=== PATIENT | female | born 1945 | race Hispanic/Latino ===

== ENCOUNTER 2016-07-27 15:38 | Inpatient (IN) | payer MEDICARE ==
[2016-07-27 15:48] VITALS: BMI 34.7
[2016-07-27] MEDS ORDERED: Sodium Chloride 0.9% 1,000 ML IV STA (16:10)
--- NOTE | 2016-07-27 16:14 | ED PDOC ---
"Arrival/HPI <Kaila Fleming - Last Filed: 07/27/16 21:47> - General Historian: Patient <Sajan Carrillo - Last Filed: 07/30/16 16:37> - General Chief Complaint: GI Problem Time Seen by Provider: 07/27/16 16:03 - History of Present Illness Narrative History of Present Illness (Text): 07/27/16 16:11 70 y/o female, pmh including renal stone/htn/hyperlipidemia/hypothyroidism, allergic to macrolide, c/o lt. flank/lt. sided abdominal pain for the 24 hours with no fall or trauma. Aching pain, feels bloated, concerning this is renal stone, feels nausea but no vomiting, no fever or chills, no coughing, no night sweat, no dizziness, no other medical or psychological complaints. (Sajan Carrillo) Past Medical History - Provider Review Nursing Documentation Reviewed: Yes - Infectious Disease Hx of Infectious Diseases: None - Cardiac Hx Hypertension: Yes Hx Pacemaker: No - Pulmonary Hx Respiratory Disorders: No - Neurological Hx Neurological Disorder: No Hx Paralysis: No - HEENT Hx HEENT Disorder: Yes (reading glasses) - Renal Hx Kidney Stones: Yes - Endocrine/Metabolic Hx Hyperthyroidism: Yes - Hematological/Oncological Hx Blood Transfusions: No Hx Blood Transfusion Reaction: No - Integumentary Hx Dermatological Disorder: No - Musculoskeletal/Rheumatological Hx Musculoskeletal Disorders: Yes Hx Arthritis: Yes - Gastrointestinal Hx Gastroesophageal Reflux: Yes - Psychiatric Hx Emotional Abuse: No Hx Physical Abuse: No Hx Substance Use: No - Surgical History Hx Appendectomy: Yes (2001) Hx Hysterectomy: Yes Other/Comment: 4 gu procedures for kidney stones, right trigger finger sx - Anesthesia Hx Anesthesia: Yes Hx Anesthesia Reactions: No - Suicidal Assessment Feels Threatened In Home Enviroment: No <Sajan Carrillo - Last Filed: 07/30/16 16:37> Family/Social History - Physician Review Nursing Documentation Reviewed: Yes Family/Social History: Unknown Family HX Smoking Status: Never Smoked Hx Alcohol Use: No Hx Substance Use: No <Sajan Carrillo - Last Filed: 07/30/16 16:37> Allergies/Home Meds <Kaila Fleming - Last Filed: 07/27/16 21:47> <Sajan Carrillo - Last Filed: 07/30/16 16:37> Allergies/Adverse Reactions: Allergies erythromycin base [From Erythrocin] Allergy (Verified 07/27/16 15:48) ITCHING Home Medications: Home Meds Medication Instructions Recorded Confirmed Aspirin [Aspir 81] 81 mg PO DAILY 07/07/13 07/27/16 Atorvastatin [Lipitor] 10 mg PO DIN 07/07/13 07/27/16 Bisoprolol Fumarate/Hydrochl [Ziac 1 tab PO QAM 07/07/13 07/27/16 10 mg-6.25 mg] Levothyroxine Sodium [Synthroid] 0.088 mg PO QAM 07/07/13 07/27/16 Rabeprazole Sodium [Aciphex] 20 mg PO QPM 07/07/13 07/27/16 Review of Systems - Review of Systems Constitutional: absent: Fatigue, Fevers Eyes: absent: Vision Changes ENT: absent: Hearing Changes Respiratory: absent: SOB, Cough Cardiovascular: absent: Chest Pain Gastrointestinal: Abdominal Pain, Constipation, Nausea, Vomiting Musculoskeletal: absent: Arthralgias, Back Pain, Neck Pain, Joint Swelling, Myalgias Neurological: absent: Headache, Dizziness, Focal Weakness Psychiatric: absent: Anxiety, Depression, Suicidal Ideation <Sajan Carrillo Q - Last Filed: 07/30/16 16:37> Physical Exam Vital Signs Reviewed: Yes Temperature: Afebrile Blood Pressure: Normal Pulse: Regular Respiratory Rate: Normal Appearance: Positive for: Well-Appearing, Non-Toxic, Comfortable Pain Distress: Mild Mental Status: Positive for: Alert and Oriented X 3 - Systems Exam Head: Present: Atraumatic, Normocephalic Pupils: Present: PERRL Extroacular Muscles: Present: EOMI Conjunctiva: Present: Normal Mouth: Present: Moist Mucous Membranes Neck: Present: Normal Range of Motion Respiratory/Chest: Present: Clear to Auscultation, Good Air Exchange. No: Respiratory Distress, Accessory Muscle Use Cardiovascular: Present: Regular Rate and Rhythm, Normal S1, S2. No: Murmurs Abdomen: Present: Distention, Normal Bowel Sounds. No: Tenderness, Peritoneal Signs, Rebound, Guarding Back: Present: Normal Inspection, CVA Tenderness (mild left). No: Midline Tenderness, Paraspinal Tenderness, Pain with Leg Raise, Decubitus Ulcer Upper Extremity: Present: Normal Inspection. No: Cyanosis, Edema Lower Extremity: Present: Normal Inspection. No: Edema Neurological: Present: GCS=15, Speech Normal, Motor Func Grossly Intact, Gait Normal, Memory Normal Skin: Present: Warm, Dry, Normal Color. No: Rashes Lymphatic: No: Cervical Adenopathy Psychiatric: Present: Alert, Oriented x 3, Normal Insight, Normal Concentration <Sajan Carrillo - Last Filed: 07/30/16 16:37> Vital Signs Temp Pulse Resp BP Pulse Ox 07/27/16 22:27 82 18 110/48 L 100 07/27/16 21:00 78 18 144/53 L 98 07/27/16 17:39 82 18 129/78 98 07/27/16 15:52 98.6 F 79 18 126/84 96 Medical Decision Making - EKG Interpretation Interpreted by ED Physician: Yes Type: 12 lead EKG <Kaila Fleming - Last Filed: 07/27/16 21:47> - Lab Interpretations I have reviewed the lab results: Yes Interpretation: Abnormal lab values (wbc 15.1, bun 22, +UTI) - RAD Interpretation [place] Polisher: Radiologist <Sajan Carrillo - Last Filed: 07/30/16 16:37> ED Course and Treatment: 07/27/16 21:48 Patient with no chest pain or sob. Afebrile. Leukocytosis noted with labs, although ct suggestive of kidney stone. On re-exam, pain returned, mild left sided abdominal pain noted but no pulsatile masses, no rebound or guarding. Patient noted to have possible UTI, iv antibiotics initiated. No hypotension or chest pain or sob. (Kaila Fleming) 07/27/16 16:15 Differential: Pylonephritis vs. obstructive renal stone vs. pancreatitis vs. small bowel obstruction vs. constipation vs. SD vs. pneumonia -labs/ua/lipase -CT abdomen and pelvis -EKG -Chest x-ray -IVF/zofran/will give morphine 4mg IV prn -Observe and reassess 07/27/16 20:24 -EKG: NSR @ 71, no ST elevation or depression, new T wave inversions noted on the lead III/V2-V4, compared with previous ekg (troponin ordered). -Chest x-ray show possible rt. sided opacity, pt. asymptomatic which I ordered CT Chest to follow. -CT Chest show no pneumonia -CT abdomen and pelvis show moderate hydronephrosis hydroureter of the left collecting system secondary to a partially obstructing stone approx. 4mm -Labs show wbc 15.1 with bun 22 -UA show +UTI -IV rocephin ordered. 07/27/16 20:32 -I discussed the case with Dr. Amber Maria, discussed about the labs and radiology results, Dr. Gómez for consult, she will admit the patient. -I discussed the case with the medical specialist Dr. Ophelia Portillo, he will come to admit the patient. -I discussed the case with Dr. Erika Gómez, discussed about the labs and radiology results, request NPO after midnight for possible procedure tomorrow -Strainer and Flomax ordered. -Pt. has pain again, additional morphine and zofran ordered with IVF. (Sajan Carrillo) - Lab Interpretations Microbiology Results: Microbiology Results 07/27/16 17:40 Blood-Venous Blood Culture - Preliminary NO GROWTH AFTER 48 HOURS 07/27/16 17:20 Blood-Venous Blood Culture - Preliminary NO GROWTH AFTER 48 HOURS 07/27/16 16:35 Urine,Clean Catch Urine Culture - Final Escherichia Coli Lab Results: 07/27/16 16:25 07/27/16 16:25 Lab Results 07/27/16 16:25: Lactate Dehydrogenase 555, Total Creatine Kinase 63, Troponin I < 0.01 07/27/16 16:25: Sodium 137, Potassium 4.2, Chloride 103, Carbon Dioxide 26, Anion Gap 12, BUN 22 H, Creatinine 1.0, Est GFR ( Amer) > 60, Est GFR ( Non-Af Amer) 55, Random Glucose 130 H, Calcium 8.7, Total Bilirubin 0.7, AST 36 , ALT 27, Alkaline Phosphatase 53, Total Protein 7.1, Albumin 3.8, Globulin 3.2 , Albumin/Globulin Ratio 1.2, Lipase 43 07/27/16 16:25: Urine Color Yellow, Urine Appearance Sl cloudy, Urine pH 6.0, Ur Specific [place] 1.025, Urine Protein Trace H, Urine Glucose (UA) Negative, Urine Ketones Trace H, Urine Blood Moderate H, Urine Nitrate Negative, Urine Bilirubin Negative, Urine Urobilinogen 0.2, Ur Leukocyte Esterase Trace H, Urine RBC 2 - 5, Urine WBC 5 - 10, Ur Epithelial Cells 4 - 5, Urine Bacteria Mod 07/27/16 16:25: WBC 15.1 H D, RBC 4.17, Hgb 12.7, Hct 37.7, MCV 90.4, MCH 30.5, MCHC 33.7, RDW 13.1, Plt Count 238, MPV 9.4, Neutrophils % (Manual) 87 H, Band Neutrophils % 6 H, Lymphocytes % (Manual) 4 L, Monocytes % (Manual) 2, Basophils % (Manual) 1, Platelet Evaluation Normal - RAD Interpretation Radiology Orders: 07/27/16 16:10 CHEST,ABD,PEL W/IV CONT ONLY [CT] Stat CHEST PORTABLE [RAD] Stat Chest x-ray: COMPARISON: 09/03/2014 FINDINGS: LUNGS: Opacity at medial right lung base. Possible early pneumonia. Follow-up advised. PLEURA: No significant pleural effusion identified, no pneumothorax apparent. CARDIOVASCULAR: Normal. OSSEOUS STRUCTURES: No significant abnormalities. VISUALIZED UPPER ABDOMEN: Normal. OTHER FINDINGS: None. IMPRESSION: No active disease. CT Chest with contrast show: CT Abdomen and pelvis show: ABDOMEN: Liver: There is a diffuse mild decrease in hepatic parenchymal density, consistent with mild fatty infiltration. There are no focal liver lesions present. Gallbladder and bile ducts: Unremarkable. No calcified stones. No ductal dilation. No significant wall thickening. Pancreas: The pancreas appears normal. No ductal dilation. Spleen: The spleen is normal. Adrenals: Unremarkable. No mass. Kidneys and ureters: There is moderate hydronephrosis hydroureter of the left collecting system secondary to a partially obstructing stone located in the left mid proximal ureter measuring approximately 4 mm. There is marked left perinephric stranding and minimal fluid seen. Calcific focus RINA HOLT | Preliminary Radiology Report Page 2 of 3 is present the left kidney, likely a nonobstructing stone. There is diffuse bilateral renal cortical thinning, consistent with chronic renal insufficiency. Stomach and bowel: Mild diverticulosis is present in the sigmoid and descending colon. The stomach is normal. The duodenum is unremarkable. No obstruction. No mucosal thickening. Appendix: There has been an appendectomy. PELVIS: Bladder: The bladder is decompressed but otherwise normal. Reproductive: Unremarkable as visualized. Subperitoneal space: There is mild nonspecific stranding associated with the perirectal fat of uncertain etiology and clinical significance. No adjacent soft tissue gas or abscess. ABDOMEN and PELVIS: Intraperitoneal space: Unremarkable. No free air. No significant fluid collection. Bones/joints: The spine demonstrates moderate degenerative changes at multiple levels. There is mild grade 1 anterolisthesis L4 on 5. No acute fracture. No dislocation. Soft tissues: Previous abdominal wall surgery for hernia repair, and placement of mesh in satisfactory position right lower quadrant. Vasculature: The aorta demonstrates severe atherosclerotic calcification and ectasia. No abdominal aortic aneurysm. Lymph nodes: Unremarkable. No enlarged lymph nodes. IMPRESSION: There is moderate hydronephrosis hydroureter of the left collecting system secondary to a partially obstructing stone located in the left mid proximal ureter, 4 mm. Left nephrolithiasis is also seen. Other incidental findings also noted, which are detailed above. EXAM: CT Chest With Intravenous Contrast CLINICAL HISTORY: 70 years old, female; Pain; Abdominal pain; Acute; Chest pain; Type not specified; Additional info: Lt. Sided abdominal/flank pain TECHNIQUE: Axial computed tomography images of the chest with intravenous contrast. This CT exam was performed using one or more of the following dose reduction techniques: automated exposure control, adjustment of the mA and/or kV according to patient size, and/or use of iterative reconstruction technique. CONTRAST: 100 mL of OMNI 350 administered intravenously. RINA HOLT | Preliminary Radiology Report DIGITAL ACCOUNT DIRECTOR (QA) DISCREPANCY? If there is a discrepancy between the preliminary and final interpretation, please notify [facility] via [email or web address]. If you do not have access to our QA portal, call our QA team at [phone] CONFIDENTIALITY STATEMENT This report is intended only for the use of the referring physician, and only in accordance with law, If you received this in error, call [phone] Page 3 of 3 COMPARISON: OT - DENSITOMETRY HIP SPINE 01/25/2016 11:10:00 AM FINDINGS: Lungs: Lungs overall clear. No focal lung consolidation, pulmonary infiltrates, no cavitary changes are seen. Pleural space: Unremarkable. No pneumothorax. No significant effusion. Heart: Unremarkable. No cardiomegaly. No significant pericardial effusion. Thyroid: The visualized thyroid and the thoracic inlet appear normal. Bones/joints: The spine demonstrates moderate degenerative changes at multiple levels. No acute fracture. No dislocation. Soft tissues: Unremarkable. Vasculature: No filling defects are seen in the pulmonary arteries or in its visualized tributaries. The aorta and the great vessels are normal. Negative for dissection. Lymph nodes: Unremarkable. No enlarged lymph nodes. IMPRESSION: No PE or dissection, no acute process is seen. Thank you for allowing us to participate in the care of your patient. Dictated and Authenticated by: Stefan Pierre MD 07/27/2016 7:50 PM Eastern Time ([place] & [place]) (Sajan Carrillo) - EKG Interpretation EKG Interpretation (Text): 07/27/16 21:49 EKG at 16:25 normal sinus rhythm rate of 71 with t wave flattening (Kaila Fleming) - Medication Orders Current Medication Orders: Discontinued Medications Acetaminophen (Tylenol 325mg Tab) 650 mg PO Q6H PRN PRN Reason: Fever >100.4 F Aspirin (Ecotrin) 81 mg PO DAILY AMAN Atorvastatin Calcium (Lipitor) 10 mg PO DIN AMAN Last Admin: 07/27/16 22:35 Dose: 10 mg Ceftriaxone Sodium (Rocephin) Confirm Administered Dose 1 gm .ROUTE .STK-MED ONE Stop: 07/28/16 08:17 Last Admin: 07/28/16 08:16 Dose: 1 gm Comments: ORM Administered Route: IVPB Fentanyl (Fentanyl) Confirm Administered Dose 100 mcg .ROUTE .STK-MED ONE Stop: 07/28/16 07:59 Sodium Chloride (Sodium Chloride 0.9%) 1,000 mls @ 125 mls/hr IV .Q8H STA Stop: 07/28/16 00:09 Last Admin: 07/27/16 16:43 Dose: 125 mls/hr Ceftriaxone Sodium (Rocephin 1 Gram Ivpb) 1 gm in 100 mls @ 200 mls/hr IVPB STAT STA PRN Reason: Protocol Stop: 07/27/16 18:39 Last Admin: 07/27/16 18:19 Dose: 200 mls/hr Sodium Chloride (Sodium Chloride 0.9%) 1,000 mls @ 250 mls/hr IV .Q4H [facility] Last Admin: 07/28/16 05:57 Dose: 250 mls/hr Ceftriaxone Sodium (Rocephin 1 Gram Ivpb) 1 gm in 100 mls @ 100 mls/hr IVPB DAILY [facility] PRN Reason: Protocol Lactated Ringer's (Lactated Ringer's) 1,000 mls @ 75 mls/hr IV .[id number] [facility] Stop: 07/28/16 10:38 Iohexol (Omnipaque 350 100 Ml) Confirm Administered Dose 350 mg .ROUTE .STK-MED ONE Stop: 07/27/16 18:40 Iohexol (Omnipaque 240 (50 Ml)) Confirm Administered Dose 50 ml .ROUTE .STK-MED ONE Stop: 07/28/16 08:17 Last Admin: 07/28/16 08:19 Dose: 20 ml Ketorolac Tromethamine (Toradol) 30 mg IVP ONCE ONE Stop: 07/27/16 20:48 Last Admin: 07/27/16 20:55 Dose: 30 mg Ketorolac Tromethamine (Toradol) 30 mg IVP Q6 PRN PRN Reason: Pain, severe (8-10) Ketorolac Tromethamine (Toradol) 30 mg IVP STAT STA Stop: 07/28/16 14:04 Last Admin: 07/28/16 14:18 Dose: 30 mg Levothyroxine Sodium (Synthroid) 88 mcg PO ACB [facility] Lidocaine HCl (Lidocaine 2% 20ml Vial) Confirm Administered Dose 20 ml .ROUTE .STK-MED ONE Stop: 07/28/16 08:11 Midazolam HCl (Versed Inj) Confirm Administered Dose 2 mg .ROUTE .STK-MED ONE Stop: 07/28/16 07:59 Morphine Sulfate (Morphine) 4 mg IVP STAT STA Stop: 07/27/16 16:57 Last Admin: 07/27/16 17:12 Dose: 4 mg Re-Assess: MARILIA Pain Assessment Document 07/27/16 18:12 EWO (Rec: 07/27/16 18:19 EWO [id number]) Pain Reassessment Is this a pain reassessment? Yes Sleep Is patient sleeping during reassessment? Yes Morphine Sulfate (Morphine) 2 mg IVP Q15M PRN PRN Reason: Pain, moderate (4-7) Non-Formulary Medication (Bisoprolol Fumarate/Hydrochl [Ziac 10 Mg-6.25 Mg]) 1 tab PO QAM AMAN Ondansetron HCl (Zofran Inj) 4 mg IVP STAT STA Stop: 07/27/16 16:12 Last Admin: 07/27/16 16:43 Dose: 4 mg Ondansetron HCl (Zofran Inj) 4 mg IVP STAT STA Stop: 07/27/16 20:33 Last Admin: 07/27/16 20:56 Dose: 4 mg Ondansetron HCl (Zofran Inj) 4 mg IVP Q4 PRN PRN Reason: Nausea/Vomiting Pantoprazole Sodium (Protonix Ec Tab) 40 mg PO ACD AMAN Propofol (Diprivan) Confirm Administered Dose 200 mg .ROUTE .STK-MED ONE Stop: 07/28/16 07:59 Tamsulosin HCl (Flomax) 0.4 mg PO STAT STA Stop: 07/27/16 20:31 Last Admin: 07/27/16 20:56 Dose: 0.4 mg - PA / TUG CAPTAIN / Resident Statement PIA has reviewed & agrees with the documentation as recorded. PIA has examined the patient and agrees with the treatment plan. <Kaila Fleming - Last Filed: 07/27/16 21:47> - PA / TUG CAPTAIN / Resident Statement PIA has reviewed & agrees with the documentation as recorded. PIA has examined the patient and agrees with the treatment plan. <Sajan Carrillo - Last Filed: 07/30/16 16:37> Disposition/Present on Arrival <Kaila Fleming - Last Filed: 07/27/16 21:47> - Present on Arrival Any Indicators Present on Arrival: No History of DVT/PE: No History of Uncontrolled Diabetes: No Urinary Catheter: No History of Decub. Ulcer: No History Surgical Site Infection Following: None - Disposition Have Diagnosis and Disposition been Completed?: Yes Disposition Time: 18:08 Patient Plan: Admission <aSjan Carrillo - Last Filed: 07/30/16 16:37> - Disposition Diagnosis: Pyelonephritis, Urolithiasis Disposition: HOSPITALIZED Condition: STABLE"
[2016-07-27 16:48] LABS: URINE BILIRUBIN NEGATIVE (NEGATIVE); URINE BLOOD MODERATE (NEGATIVE); URINE COLOR YELLOW (YELLOW); URINE GLUCOSE (UA) NEGATIVE (NEGATIVE); URINE KETONE TRACE mg/dL (NEGATIVE); URINE LEUKOCYTE ESTERASE TRACE Leu/uL (NEGATIVE); URINE PROTEIN TRACE mg/dL (<30 mg/dL); URINE UROBILINOGEN 0.2 E.U./dL (<1 E.U./dL)
[2016-07-27 16:49] LABS: HEMATOCRIT 37.7 % (36.0-48.0); MEAN CELL VOLUME 90.4 fL (80.0-105.0); MEAN CORPUSCULAR HEMOGLOBIN 30.5 pg (25.0-35.0); MEAN CORPUSCULAR HGB CONC 33.7 g/dl (31.0-37.0); MEAN PLATELET VOLUME 9.4 fl (7.0-11.0); PLATELET COUNT 238 10^3/uL (120.0-450.0); RED CELL DISTRIBUTION WIDTH 13.1 % (11.5-14.5); URINE APPEARANCE SL CLOUDY (CLEAR); WHITE BLOOD COUNT 15.1 10^3/ul (4.5-11.0)
[2016-07-27] MEDS ORDERED: Morphine 4 mg/ml ISec IVP STA ×2 (16:56→20:32)
[2016-07-27 17:04] LABS: ALB/GLOB RATIO 1.2 (1.1-1.8); ALKALINE PHOSPHATASE 53 U/L (38-133); ALT/SGPT 27 U/L (7-56); AST/SGOT 36 U/L (15-39); BILIRUBIN,TOTAL 0.7 mg/dL (0.2-1.3); BLOOD UREA NITROGEN 22 mg/dL (7-21); CALCIUM 8.7 mg/dL (8.4-10.5); CARBON DIOXIDE 26 mmol/L (21-33); CHLORIDE 103 mmol/L (98-107); GFR AFRICAN-AMERICAN > 60; GLUCOSE,RANDOM 130 mg/dL (70-110); LIPASE 43 U/L (23-300); POTASSIUM 4.2 mmol/L (3.6-5.0); SODIUM 137 mmol/L (132-148); TOTAL PROTEIN 7.1 g/dL (5.8-8.3)
--- NOTE | 2016-07-27 17:07 | RAD ---
HISTORY: lt. flank pain COMPARISON: 09/03/2014 FINDINGS: LUNGS: Opacity at medial right lung base. Possible early pneumonia. Follow-up advised. PLEURA: No significant pleural effusion identified, no pneumothorax apparent. CARDIOVASCULAR: Normal. OSSEOUS STRUCTURES: No significant abnormalities. VISUALIZED UPPER ABDOMEN: Normal. OTHER FINDINGS: None. IMPRESSION: No active disease.
[2016-07-27 17:13] LABS: ADD MANUAL DIFF? YES
[2016-07-27 17:15] LABS: BAND 6 % (0-2); BASOPHIL 1 % (0.0-1.0); NEUTROPHIL 87 % (50.0-70.0); PLATELET ESTIMATE NORMAL (NORMAL)
[2016-07-27 17:29] LABS: URINE BACTERIA MOD (NEG)
[2016-07-27 17:50] LABS: TROPONIN I < 0.01 ng/mL
[2016-07-27] MEDS ORDERED: cefTRIAXone 1 gm 1 GM/100 ML BAG IVPB STA (18:10)
[2016-07-27] MEDS ORDERED: Iohexol 350 MG/100 ML VIAL ONE (18:39)
[2016-07-27] MEDS: Sodium Chloride 0.9% 1,000 ML IV SCH (20:56)
--- NOTE | 2016-07-27 21:37 | CP.PCM.HP ---
History of Present Illness - History of Present Illness History of Present Illness: 70 year old female with past medical history of recurrent renal stones , hypertension, hyperlipidemia, hypothyroidism, and diverticulitis presents to [facility] ED with left sided abdominal pain. Patient reports her abdominal pain started this morning. The pain is located at left lower abdominal quadrant, describes the pain as achy in quality, rates its 8/10 in intensity, non- radiating. She states the pain is similar to the pain when she had a kidney stone last time. Patient reports to have chills, nausea, vomiting associated with the abdominal pain. Patient states pain is worse with positional changes. She see Dr. Erika Gómez as outpatient. Patient denies headache, weakness, loss of consciousness, fever, shortness of breath, chest pain, diarrhea, constipation, or urinary symptoms. PMD: Dr. Reyes PMHx: renal stones, hypertension, hyperlipidemia, hypothyroidism, and diverticulitis PSHx: appendectomy, procedures for renal stones x4 Allergy: erythromycin Social hx: denies tobacco, alcohol or other drug use Family Hx: non contributory Medication: see MAR Present on Admission - Present on Admission Any Indicators Present on Admission: No History of DVT/PE: No History of Uncontrolled Diabetes: No Review of Systems - Constitutional Constitutional: As Per HPI, Chills. absent: Fatigue, Headache - EENT Eyes: As Per HPI. absent: Blurred Vision, Change in Vision Ears: As Per HPI. absent: Disequilibrium, Dizziness Nose/Mouth/Throat: As Per HPI. absent: Nasal Trauma - Cardiovascular Cardiovascular: As Per HPI. absent: Chest Pain, Chest Pain at Rest, Chest Pain with Activity, Edema, Leg Edema - Respiratory Respiratory: As Per HPI. absent: Dyspnea, Dyspnea on Exertion, Wheezing - Gastrointestinal Gastrointestinal: As Per HPI, Abdominal Pain, Nausea, Vomiting. absent: Constipation, Diarrhea - Genitourinary Genitourinary: As Per HPI. absent: Hematuria, Urinary Incontinence, Urinary Frequency, Urinary Hesitance - Musculoskeletal Musculoskeletal: As Per HPI. absent: Back Pain, Deformity - Integumentary Integumentary: As Per HPI. absent: Erythema, New Lesions, Swelling - Neurological Neurological: As Per HPI. absent: Dizziness, Numbness, Headaches, Vertigo, Weakness - Psychiatric Psychiatric: As Per HPI. absent: Anxiety, Hallucinations, Irritability - Endocrine Endocrine: As Per HPI - Hematologic/Lymphatic Hematologic: As Per HPI Past Patient History - Infectious Disease Hx of Infectious Diseases: None - Past Social History Smoking Status: Never Smoked - CARDIAC Hx Hypertension: Yes Hx Pacemaker: No - PULMONARY Hx Respiratory Disorders: No - NEUROLOGICAL Hx Neurological Disorder: No Hx Paralysis: No - HEENT Hx HEENT Problems: Yes (reading glasses) - RENAL Hx Kidney Stones: Yes - ENDOCRINE/METABOLIC Hx Hyperthyroidism: Yes - HEMATOLOGICAL/ONCOLOGICAL Hx Blood Transfusions: No Hx Blood Transfusion Reaction: No - INTEGUMENTARY Hx Dermatological Problems: No - MUSCULOSKELETAL/RHEUMATOLOGICAL Hx Musculoskeletal Disorders: Yes Hx Arthritis: Yes - GASTROINTESTINAL Hx Gastroesophageal Reflux: Yes - PSYCHIATRIC Hx Emotional Abuse: No Hx Physical Abuse: No Hx Substance Use: No - SURGICAL HISTORY Hx Appendectomy: Yes (2001) Hx Hysterectomy: Yes Other/Comment: 4 gu procedures for kidney stones, right trigger finger sx - ANESTHESIA Hx Anesthesia: Yes Hx Anesthesia Reactions: No Meds Allergies/Adverse Reactions: Allergies Allergy/AdvReac Type Severity Reaction Status Date / Time erythromycin base Allergy ITCHING Verified 07/27/16 15:48 [From Erythrocin] Physical Exam - Constitutional Appears: Non-toxic, No Acute Distress - Head Exam Head Exam: ATRAUMATIC, NORMAL INSPECTION, NORMOCEPHALIC - Eye Exam Eye Exam: EOMI, Normal appearance, PERRL - ENT Exam ENT Exam: Mucous Membranes Moist - Neck Exam Neck exam: Positive for: Normal Inspection - Respiratory Exam Respiratory Exam: Clear to Auscultation Bilateral, NORMAL BREATHING PATTERN. absent: Rhonchi, Wheezes, Respiratory Distress - Cardiovascular Exam Cardiovascular Exam: REGULAR RHYTHM, RRR, +S1, +S2 - GI/Abdominal Exam GI & Abdominal Exam: Normal Bowel Sounds, Soft, Tenderness (left lower quadrant tenderness). absent: Hernia, Rigid - Extremities Exam Extremities exam: Positive for: normal capillary refill, normal inspection, pedal pulses present. Negative for: pedal edema, tenderness - Back Exam Back exam: CVA tenderness (L), NORMAL INSPECTION - Psychiatric Exam Psychiatric exam: Normal Affect, Normal Mood - Skin Skin Exam: Dry, Intact, Normal Color, Warm Results - Vital Signs Recent Vital Signs: Last Vital Signs Temp 98.6 F 07/27/16 15:52 Pulse 78 07/27/16 21:00 Resp 18 07/27/16 21:00 BP 144/53 L 07/27/16 21:00 Pulse Ox 98 07/27/16 21:00 - Labs Result Diagrams: 07/27/16 16:25 07/27/16 16:25 Assessment & Plan - Assessment and Plan (Free Text) Assessment: 70 year old female with past medical history of recurrent renal stones, hypertension, hyperlipidemia, hypothyroidism, and diverticulitis presents with left sided abdominal pain Plan: Left sided abdominal pain -CT Abd pelvic chest showed moderate hydronephrosis hydroureter of the left collecting system secondary to a partially obstructing stone located in the left mid proximal ureter, 4mm. Left nephrolithiasis is also seen. No PE or dissection, no acute process is seen. -Urology consult, Dr. Erika Gómez help appreciated -NPO -Toradol IV q6h for pain, patient becomes nauseous with morphine -Urine Strainer -Zofran for nausea and vomiting Leukocytosis -Afebrile -WBC 15.1 on admission -UA showed trace LE and Protein -Urine and blood cultures -Rocephin 1gm IV daily HLD -Resume Lipitor 10mg po HTN -Resume Ziac 10mg-6.25mg Hypothyroidism -Synthroid 88mcg po daily Prophylactic measures -SCD for DVT ppx -Protonix for GI ppx
[2016-07-28] MEDS: Sodium Chloride 0.9% 1,000 ML IV SCH ×2 (02:18→05:57)
[2016-07-28] MEDS ORDERED: Levothyroxine 88 MCG TAB PO SCH (07:30)
[2016-07-28 07:46] VITALS: RESP 18
[2016-07-28] MEDS ORDERED: Midazolam 2 MG/2 ML VIAL ONE (07:58)
[2016-07-28] MEDS ORDERED: Propofol 10 mg/ml Inj (20 ML) ONE (07:58)
[2016-07-28] MEDS ORDERED: Lidocaine 2% Inj (20ml) ONE (08:10)
[2016-07-28] MEDS ORDERED: cefTRIAXone (Rocephin) 1 gm Inj ONE (08:16)
[2016-07-28] MEDS ORDERED: Iohexol 240 (50 ml) ONE (08:16)
[2016-07-28] MEDS ORDERED: Morphine 2 mg/ml ISec IVP PRN (08:37)
[2016-07-28] MEDS ORDERED: Lactated Ringer's 1,000 ML IV SCH (08:37)
[2016-07-28 08:48] VITALS: TEMP 97.4
[2016-07-28 09:08] VITALS: BP 107/51
[2016-07-28 09:22] VITALS: PULSE 59; O2SAT 99
[2016-07-28] MEDS ORDERED: BISOPROLOL PO SCH (10:00)
[2016-07-28] MEDS ORDERED: cefTRIAXone 1 gm 1 GM/100 ML BAG IVPB SCH (10:00)
[2016-07-28] MEDS ORDERED: HYDROCHLOROTHIAZIDE PO SCH (10:00)
--- NOTE | 2016-07-28 12:32 | CT ---
PROCEDURE: CT Chest, Abdomen and Pelvis with intravenous contrast HISTORY: lt. sided abdominal/flank pain COMPARISON: Comparison made with CT scan abdomen and pelvis dated 09/03/2014 TECHNIQUE: IV dose administered: 100 cc of Omnipaque 350 contrast material. Radiation dose: Total exam DLP = 1236.01 mGy-cm. This CT exam was performed using one or more of the following dose reduction techniques: Automated exposure control, adjustment of the mA and/or kV according to patient size, and/or use of iterative reconstruction technique. FINDINGS: CT CHEST WITH CONTRAST: LUNGS: Mild passive atelectasis both posterior lung felipe. No effusion or pneumothorax. No parenchymal mass or obvious nodules. MEDIASTINUM: Heart size is within range of normal. No significant pericardial effusion. Ascending thoracic aorta measures approximately 2.97 cm and descending thoracic aorta measures approximately 2.0 cm. Pulmonary trunk measures 2.45 cm. While this study was not dedicated to evaluate for pulmonary embolus, no gross on filling defects seen within the pulmonary trunk, right and left main branches, lobar branches and proximal segmental. Tiny hiatal hernia. LYMPH NODES: Few small nonspecific mediastinal lymph nodes are present. No significant hilar adenopathy. . PLEURA: Unremarkable. No pneumothorax. No pleural fluid. BONES: Unremarkable. OTHER FINDINGS: None. CT ABDOMEN AND PELVIS: LIVER: Liver exhibits normal size. There appears to be some very minor fatty hepatic infiltration. No obvious hepatic lobe mass or collection. Portal and splenic veins are opacified. GALLBLADDER AND BILE DUCTS: Gallbladder is physiologically distended. No evidence of intraluminal gallbladder calculi. PANCREAS: The pancreas is atrophic and fatty replaced. . No obvious pancreatic mass or collection. SPLEEN: Spleen exhibits normal size and attenuation pattern without mass collection or calcification. ADRENALS: There are no adrenal lesions. KIDNEYS AND URETERS: The kidneys exhibit symmetric nephrograms. There appear to be at least 2 adjacent calcifications lower pole left kidney 1 measuring 4 mm and the other 3.3 mm There is moderate left-sided hydronephrosis of with dilatation and mid ureter secondary to a small approximately 3.2 mm calculus in the mid to lower ureter at the L5 level. Ureter however the mid and distal ureter appear collapsed. Stranding - infiltration and fluid noted in the left perinephric fat VASCULATURE: Mild atherosclerotic plaque seen along abdominal aorta and iliac arteries. BOWEL: Evaluation of the bowel is limited due to the lack of oral contrast material. Stomach is nondistended which presumably accounts thick-walled appearance. Gastritis or other intrinsic/ invasive wall lesion not excluded. Visualized loops of small bowel exhibit normal contour and caliber. No evidence acute mechanical small bowel obstruction. There are multiple colonic diverticula however no definitive radiographic evidence of acute diverticulitis. APPENDIX: The appendix is not seen with certainty. No obvious inflammatory changes right lower quadrant of the abdomen. PERITONEUM: No evidence of free intraperitoneal air. LYMPH NODES: No bulky adenopathy BLADDER: Urinary bladder appears physiologically distended. . REPRODUCTIVE: Status post hysterectomy BONES: Multilevel degenerative spondylosis of the lumbar spine. Slight anterior subluxation L4 over L5. OTHER FINDINGS: None. IMPRESSION: There is a 4 mm obstructing calculus in the mid to distal left ureter at the L5 level lymph with moderate left-sided hydronephrosis. Additional calculi lower pole left kidney as detailed above. No evidence of acute infiltrates. No gross central pulmonary emboli in however note that the study was not dedicated to evaluate for pulmonary emboli. Mild fatty hepatic infiltration. Diverticulosis. No radiographic evidence of acute diverticulitis.
--- NOTE | 2016-07-28 15:19 | CP.PCM.DIS ---
<Dionicio Dalal - Last Filed: 07/29/16 17:11> Provider - Provider Date of Admission: 07/27/16 20:57 Attending physician: Shana Lamar MD Primary care physician: Demetris Reyes MD Consults: Urology: Guillaume Gómez Time Spent in preparation of Discharge (in minutes): 45 Hospital Course - Lab Results Lab Results: Most Recent Lab Values WBC 15.1 10^3/ul (4.5-11.0) H D 07/27/16 16:25 RBC 4.17 10^6/uL (3.5-6.1) 07/27/16 16:25 Hgb 12.7 gm/dL (12.0-16.0) 07/27/16 16:25 Hct 37.7 % (36.0-48.0) 07/27/16 16:25 MCV 90.4 fL (80.0-105.0) 07/27/16 16:25 MCH 30.5 pg (25.0-35.0) 07/27/16 16:25 MCHC 33.7 g/dl (31.0-37.0) 07/27/16 16:25 RDW 13.1 % (11.5-14.5) 07/27/16 16:25 Plt Count 238 10^3/uL (120.0-450.0) 07/27/16 16:25 MPV 9.4 fl (7.0-11.0) 07/27/16 16:25 Neutrophils % (Manual) 87 % (50.0-70.0) H 07/27/16 16:25 Band Neutrophils % 6 % (0-2) H 07/27/16 16:25 Lymphocytes % (Manual) 4 % (22.0-35.0) L 07/27/16 16:25 Monocytes % (Manual) 2 % (1.0-6.0) 07/27/16 16:25 Basophils % (Manual) 1 % (0.0-1.0) 07/27/16 16:25 Platelet Evaluation Normal (NORMAL) 07/27/16 16:25 Sodium 137 mmol/L (132-148) 07/27/16 16:25 Potassium 4.2 mmol/L (3.6-5.0) 07/27/16 16:25 Chloride 103 mmol/L (98-107) 07/27/16 16:25 Carbon Dioxide 26 mmol/L (21-33) 07/27/16 16:25 Anion Gap 12 (10-20) 07/27/16 16:25 BUN 22 mg/dL (7-21) H 07/27/16 16:25 Creatinine 1.0 mg/dL (0.5-1.4) 07/27/16 16:25 Est GFR ( Amer) > 60 07/27/16 16:25 Est GFR (Non-Af Amer) 55 07/27/16 16:25 Random Glucose 130 mg/dL (70-110) H 07/27/16 16:25 Calcium 8.7 mg/dL (8.4-10.5) 07/27/16 16:25 Total Bilirubin 0.7 mg/dL (0.2-1.3) 07/27/16 16:25 AST 36 U/L (15-39) 07/27/16 16:25 ALT 27 U/L (7-56) 07/27/16 16:25 Alkaline Phosphatase 53 U/L (38-133) 07/27/16 16:25 Lactate Dehydrogenase 555 U/L (333-699) 07/27/16 16:25 Total Creatine Kinase 63 U/L (35-230) 07/27/16 16:25 Troponin I < 0.01 ng/mL 07/27/16 16:25 Total Protein 7.1 g/dL (5.8-8.3) 07/27/16 16:25 Albumin 3.8 g/dL (3.0-4.8) 07/27/16 16:25 Globulin 3.2 gm/dL 07/27/16 16:25 Albumin/Globulin Ratio 1.2 (1.1-1.8) 07/27/16 16:25 Lipase 43 U/L (23-300) 07/27/16 16:25 Urine Color Yellow (YELLOW) 07/27/16 16:25 Urine Appearance Sl cloudy (CLEAR) 07/27/16 16:25 Urine pH 6.0 (4.7-8.0) 07/27/16 16:25 Ur Specific [place] 1.025 (1.005-1.035) 07/27/16 16:25 Urine Protein Trace mg/dL (<30 mg/dL) H 07/27/16 16:25 Urine Glucose (UA) Negative mg/dL (NEGATIVE) 07/27/16 16:25 Urine Ketones Trace mg/dL (NEGATIVE) H 07/27/16 16:25 Urine Blood Moderate (NEGATIVE) H 07/27/16 16:25 Urine Nitrate Negative (NEGATIVE) 07/27/16 16:25 Urine Bilirubin Negative (NEGATIVE) 07/27/16 16:25 Urine Urobilinogen 0.2 E.U./dL (<1 E.U./dL) 07/27/16 16:25 Ur Leukocyte Esterase Trace Xu/uL (NEGATIVE) H 07/27/16 16:25 Urine RBC 2 - 5 /hpf (0-2) 07/27/16 16:25 Urine WBC 5 - 10 /hpf (0-6) 07/27/16 16:25 Ur Epithelial Cells 4 - 5 /hpf (0-5) 07/27/16 16:25 Urine Bacteria Mod (NEG) 07/27/16 16:25 - Hospital Course Hospital Course: Upon Admission: 70yo F with PMHx of recurrent kidney stones, HTN, HLD, Hypothyroidism, and diverticulitis here for evaluation of Left flank pain. States that the pain is similar to previous episodes of kidney stones. Patient had a leukocytosis, was afebrile. CT scan with evidence of 4mm obstructing calculus on Left. Dr. Gómez was contacted and took the patient to the OR the next morning. Placed a stent and asked the patient to follow up with the stone center in [place] for further eval and treatment. Urine culture with thomas-sensitive E.Coli. Patient was discharged on course of Cipro, Flomax and given percocet for pain management. Patient agrees with plan, all questions answered. 1. L Renal Calculi; stent placed; f/u with stone center 2. UTI; Cipro 3. Hx of HLD 4. Hx of HTN 5. Hx of Hypothyroid Upon Discharge: Patient is cleared for discharge as per Dr. Lamar 1. Follow up with Dr. Gómez in 1 week. Call for appointment 2. Follow up with the Stone center. Call for appointment 3. Follow up with your Primary Care physician within one week. 4. Resume home meds 5. Take new meds as directed. 6. Return to the ER with any concerning symptoms New Prescriptions: Percocet 5/325mg PO q6h prn #8/0 Ciprofloxacin 500mg PO BID #14/0 Flomax 0.4mg PO Daily #14/0 Discharge Exam - Head Exam Head Exam: ATRAUMATIC, NORMAL INSPECTION, NORMOCEPHALIC - Eye Exam Eye Exam: EOMI, Normal appearance. absent: Scleral icterus - ENT Exam ENT Exam: Mucous Membranes Moist - Respiratory Exam Respiratory Exam: Clear to PA & Lateral, NORMAL BREATHING PATTERN, UNREMARKABLE. absent: Accessory Muscle Use, Rales, Rhonchi, Wheezes, Respiratory Distress - Cardiovascular Exam Cardiovascular Exam: RRR, +S1, +S2. absent: JVD - GI/Abdominal Exam GI & Abdominal Exam: Soft. absent: Distended, Tenderness - Extremities Exam Extremities exam: normal inspection - Back Exam Back exam: NORMAL INSPECTION - Neurological Exam Neurological exam: Alert, Oriented x3 - Psychiatric Exam Psychiatric exam: Normal Affect, Normal Mood - Skin Skin Exam: Dry, Intact, Normal Color, Warm Discharge Plan - Discharge Medications Prescriptions: Ciprofloxacin [Cipro] 500 mg PO BID #14 tab oxyCODONE/Acetaminophen [Percocet 5/325 mg Tab] 1 ea PO Q6H PRN #8 tab PRN Reason: Pain, Severe (8-10) Tamsulosin [Flomax] 0.4 mg PO DAILY #14 cap - Follow Up Plan Condition: STABLE Disposition: HOME/ ROUTINE Instructions: Cystoscopy (DC), Renal Colic (GEN), Ureteral Stent Placement (DC) , Hydronephrosis (DC) Additional Instructions: Patient is cleared for discharge as per Dr. Lamar 1. Follow up with Dr. Gómez in 1 week. Call for appointment 2. Follow up with the Stone center. Call for appointment 3. Follow up with your Primary Care physician within one week. 4. Resume home meds 5. Take new meds as directed. 6. Return to the ER with any concerning symptoms New Prescriptions: Percocet 5/325mg PO q6h prn #8/0 Ciprofloxacin 500mg PO BID #14/0 Flomax 0.4mg PO Daily #14/0 Referrals: Demetris Reyes MD [Primary Care Provider] - <Shana Lamar - Last Filed: 07/29/16 17:39> Provider - Provider Date of Admission: 07/27/16 20:57 Attending physician: Shana Lamar MD Primary care physician: Demetris Reyes MD Hospital Course - Lab Results Lab Results: Most Recent Lab Values WBC 15.1 10^3/ul (4.5-11.0) H D 07/27/16 16:25 RBC 4.17 10^6/uL (3.5-6.1) 07/27/16 16:25 Hgb 12.7 gm/dL (12.0-16.0) 07/27/16 16:25 Hct 37.7 % (36.0-48.0) 07/27/16 16:25 MCV 90.4 fL (80.0-105.0) 07/27/16 16:25 MCH 30.5 pg (25.0-35.0) 07/27/16 16:25 MCHC 33.7 g/dl (31.0-37.0) 07/27/16 16:25 RDW 13.1 % (11.5-14.5) 07/27/16 16:25 Plt Count 238 10^3/uL (120.0-450.0) 07/27/16 16:25 MPV 9.4 fl (7.0-11.0) 07/27/16 16:25 Neutrophils % (Manual) 87 % (50.0-70.0) H 07/27/16 16:25 Band Neutrophils % 6 % (0-2) H 07/27/16 16:25 Lymphocytes % (Manual) 4 % (22.0-35.0) L 07/27/16 16:25 Monocytes % (Manual) 2 % (1.0-6.0) 07/27/16 16:25 Basophils % (Manual) 1 % (0.0-1.0) 07/27/16 16:25 Platelet Evaluation Normal (NORMAL) 07/27/16 16:25 Sodium 137 mmol/L (132-148) 07/27/16 16:25 Potassium 4.2 mmol/L (3.6-5.0) 07/27/16 16:25 Chloride 103 mmol/L (98-107) 07/27/16 16:25 Carbon Dioxide 26 mmol/L (21-33) 07/27/16 16:25 Anion Gap 12 (10-20) 07/27/16 16:25 BUN 22 mg/dL (7-21) H 07/27/16 16:25 Creatinine 1.0 mg/dL (0.5-1.4) 07/27/16 16:25 Est GFR ( Amer) > 60 07/27/16 16:25 Est GFR (Non-Af Amer) 55 07/27/16 16:25 Random Glucose 130 mg/dL (70-110) H 07/27/16 16:25 Calcium 8.7 mg/dL (8.4-10.5) 07/27/16 16:25 Total Bilirubin 0.7 mg/dL (0.2-1.3) 07/27/16 16:25 AST 36 U/L (15-39) 07/27/16 16:25 ALT 27 U/L (7-56) 07/27/16 16:25 Alkaline Phosphatase 53 U/L (38-133) 07/27/16 16:25 Lactate Dehydrogenase 555 U/L (333-699) 07/27/16 16:25 Total Creatine Kinase 63 U/L (35-230) 07/27/16 16:25 Troponin I < 0.01 ng/mL 07/27/16 16:25 Total Protein 7.1 g/dL (5.8-8.3) 07/27/16 16:25 Albumin 3.8 g/dL (3.0-4.8) 07/27/16 16:25 Globulin 3.2 gm/dL 07/27/16 16:25 Albumin/Globulin Ratio 1.2 (1.1-1.8) 07/27/16 16:25 Lipase 43 U/L (23-300) 07/27/16 16:25 Urine Color Yellow (YELLOW) 07/27/16 16:25 Urine Appearance Sl cloudy (CLEAR) 07/27/16 16:25 Urine pH 6.0 (4.7-8.0) 07/27/16 16:25 Ur Specific [place] 1.025 (1.005-1.035) 07/27/16 16:25 Urine Protein Trace mg/dL (<30 mg/dL) H 07/27/16 16:25 Urine Glucose (UA) Negative mg/dL (NEGATIVE) 07/27/16 16:25 Urine Ketones Trace mg/dL (NEGATIVE) H 07/27/16 16:25 Urine Blood Moderate (NEGATIVE) H 07/27/16 16:25 Urine Nitrate Negative (NEGATIVE) 07/27/16 16:25 Urine Bilirubin Negative (NEGATIVE) 07/27/16 16:25 Urine Urobilinogen 0.2 E.U./dL (<1 E.U./dL) 07/27/16 16:25 Ur Leukocyte Esterase Trace Xu/uL (NEGATIVE) H 07/27/16 16:25 Urine RBC 2 - 5 /hpf (0-2) 07/27/16 16:25 Urine WBC 5 - 10 /hpf (0-6) 07/27/16 16:25 Ur Epithelial Cells 4 - 5 /hpf (0-5) 07/27/16 16:25 Urine Bacteria Mod (NEG) 07/27/16 16:25 Attending/Attestation - Attestation I have personally seen and examined this patient.: Yes I have fully participated in the care of the patient.: Yes I have reviewed all pertinent clinical information, including history, physical exam and plan: Yes Notes (Text): 07/28/16 70 year old female with past medical history of recurrent kidney stones, hypertension, dyslipidemia and hypothyroidism who presented with complaint of left flank pain. She was found to have leukocytosis. CT scan showed 4 mm obstructing calculus with hydronephrosis. She was started on iv fluids, analgesics and antibiotics. Ucx grew E coli. She was seen by urology and underwent cystoscopy with stent placement. Her symptoms improved. She was cleared for discharge by urology. Patient is discharged home to follow up with her pmd. Follow up with urology. Continue with antibiotics as prescribed. Shana Lamar MD Hospitalist.
[2016-07-28] MEDS ORDERED: Pantoprazole 40 mg EC Tab PO SCH (16:30)
--- NOTE | 2016-07-28 16:45 | CARD ---
APPROVED REPORT EKG Measurement Heart [id number] <Conclusion> Normal sinus rhythm Possible Anterior infarct, age undetermined Abnormal ECG
--- NOTE | 2016-07-29 08:09 | OP ---
PROCEDURE DATE: 07/28/2016 PREOPERATIVE DIAGNOSES: Urolithiasis, hematuria, severe renal colic. POSTOPERATIVE DIAGNOSES: Urolithiasis, hematuria, severe renal colic, cystocele. PROCEDURES: Cystoscopy, retrograde pyelogram, and insertion of double-J stent. INDICATIONS: See history and physical for details. A very pleasant lady with severe left renal coli c. Here to have the procedure. BLOOD LOSS: Less than 10 mL. At termination of procedure, double-J stent is in good location. It sits nicely in the renal pelvis and in the bladder. PROCEDURES: Examination under anesthesia, cystoscopy, retrograde pyelogram and stent insertion. COMPLICATIONS: There were no complications. INDICATIONS: See history and physical for further details and also the consultation. The patient kn own to me with stone disease. She has not had any problems but we have not seen her lately. I do see her on a regular basis. I always ask; she is doing well. Now she presents with severe renal colic and we are here for the ab ove procedure. PROCEDURE: After obtaining informed consent, ____ table, routine monitors placed, timeout ____. We discussed options. We discussed ESWL. We discussed getting out to [place]. She is having ongoing pa in now, severe pain. So after discussing the options with the patient, she is here now for the above procedure. PROCEDURE: Patient consent was obtained. Timeouts were called to confirm patient. Cystoscope via t he urethra. Ureteral orifice identified. Retrograde pyelograms a little difficult because of the cy stocele. Retrograde pyelograms performed. They are somewhat limited films. Actually the machine went off in the middle and had to be rebooted, the x-ray machine. We were able to continue working and there were no complications, but some of the retrograde films go t lost. Either way, the cystoscope was introduced ____. Retrograde pyelogram is being done. We then put a wire up to the kidney. We confirmed the positioning. And then we did a double-J stent insertion. At termination of the procedure, double-J stent was in place, bladder was emptied. Exam under anesth esia revealed a cystocele. The patient tolerated procedure well without complication. Ky Gómez MD cc: [phone] TT: 07/28/2016 17:27:56 mn
--- NOTE | 2016-07-29 19:37 | RAD ---
PROCEDURE: Left-sided retrograde pyelogram HISTORY: COMPARISON: TECHNIQUE: Fluoroscopy was provided in the operating room. 8 seconds of fluoroscopy time was utilized. Six images were submitted FINDINGS: The study shows placement of a left ureteral stent IMPRESSION: As above
== END 2016-07-28 15:45 | disposition home or self-care (01) | DRG 694 ==
LOC: ED 15:38 → ERH 20:57 → 3RNO 22:58
PROVIDERS: ADMIT Internal Medicine; ATTEND Internal Medicine
PROC: BT1FZZZ Fluoroscopy of Left Kidney, Ureter and Bladder (ICD-10-PCS; 2016-07-28)
PROC: 0TJB8ZZ Inspection of Bladder, Via Natural or Artificial Opening Endoscopic (ICD-10-PCS; 2016-07-28)
PROC: 0WHR8YZ Insertion of Other Device into Genitourinary Tract, Via Natural or Artificial Opening Endoscopic (ICD-10-PCS; principal; 2016-07-28 08:00)
DX: N20.0 Calculus of kidney (principal); N13.30 Unspecified hydronephrosis; K76.0 Fatty (change of) liver, not elsewhere classified; K57.92 Diverticulitis of intestine, part unspecified, without perforation or abscess without bleeding; N39.0 Urinary tract infection, site not specified; I12.9 Hypertensive chronic kidney disease with stage 1 through stage 4 chronic kidney disease, or unspecified chronic kidney disease; E78.5 Hyperlipidemia, unspecified; N18.9 Chronic kidney disease, unspecified; E03.9 Hypothyroidism, unspecified; K21.9 Gastro-esophageal reflux disease without esophagitis; M43.16 Spondylolisthesis, lumbar region; N99.3 Prolapse of vaginal vault after hysterectomy; Z79.82 Long term (current) use of aspirin; Z79.899 Other long term (current) drug therapy; Z87.442 Personal history of urinary calculi; Z90.49 Acquired absence of other specified parts of digestive tract; R31.9 Hematuria, unspecified; E05.80 Other thyrotoxicosis without thyrotoxic crisis or storm; M19.90 Unspecified osteoarthritis, unspecified site

== ENCOUNTER 2016-08-08 12:59 | Day surgery (SDC) | payer MEDICARE ==
[2016-08-08] MEDS ORDERED: cefTRIAXone (Rocephin) 1 gm Inj ONE (15:34)
[2016-08-08] MEDS ORDERED: Oxycodone/Acetaminophen 5/325 mg Tab PO PRN (15:34)
[2016-08-08] MEDS ORDERED: Iohexol 240 (50 ml) ONE (15:34)
[2016-08-08] MEDS ORDERED: Propofol 10 mg/ml Inj (20 ML) ONE (15:50)
[2016-08-08] MEDS ORDERED: Midazolam 2 MG/2 ML VIAL ONE (15:51)
[2016-08-08] MEDS ORDERED: Sodium Chloride 0.9% 1,000 ML IV SCH (16:30)
[2016-08-08 17:35] VITALS: RESP 18; TEMP 97.7
[2016-08-08 17:59] VITALS: BP 125/60; PULSE 69; O2SAT 97
--- NOTE | 2016-08-11 10:29 | HP ---
UROLOGY ADMISSION HISTORY AND PHYSICAL REASON FOR TREATMENT: Is for stone disease. This is a very pleasant lady who presented back here about a week or so ago. She presented with carline re renal colic in the overnight hours. We discussed options with the patient, and we did a cysto mode nt insertion for a distal ureteral stone that was causing severe pain. We discussed the possibility then of ureteroscopy, laser lithotripsy. Discussed the stone passing spontaneously. She is having s evere pain. We placed a stent. The patient then went home the same day, was doing very well. Then we then made arrangements for shockwave lithotripsy. The patient is a very pleasant lady - I have seen her. She is not overly compliant. She comes in to the office only mostly when she has severe pain. She had stones up in her kidney. S he had stones in her distal ureter. Today, she is here for treatment to remove the stent, and if there are any [facility], we are planning to remove them as well. The patient had shockwave lithotripsy for her kidney stones. See the operative note and the history and physical from the stone center. Most recently brought in to the stone center. We did ESWL shockwave lithotripsy for her kidney stone. Initially at [facility], I placed a stent for severe renal colic of a distal ureteral stone. At the time I brought [facility] to the stone center with KUBs and oblique imaging, we did not see a stone in the ureter. So we en d up doing an ESWL for the kidney stone. I had explained all this and laid this out well to the patient. Today, she is here for stent removal and also for ureteroscope. In the event that we do see a stone, we are going to laser it or stone basket it, depending on what we find clinically. See the operative report. PAST MEDICAL AND SURGICAL HISTORY: No other changes. A patient of Dr. Demetris Reyes. REVIEW OF SYSTEMS: As above. No weight loss, chest pain, shortness of breath or the like. SOCIAL HISTORY: On a social note, she is . Her is also my patient. His name is Raz Espinoza. It comes to the office on a very regular reliable basis. So I know when she has trouble with her stones. She only comes in when she has trouble. PHYSICAL EXAMINATION: GENERAL: Well-nourished female in no apparent distress. VITAL SIGNS: Noted. LUNGS: Clear. ABDOMEN: Overall soft, nontender. ____ flank mass appreciated. PELVIC: Go to cysto, but I will mention from her previous pelvic exam, no pelvic or rectal masses. DIAGNOSES: Urolithiasis, hematuria, hydronephrosis, significant left-sided stone disease and stone b urden. PLAN: For today is as follows. So again, just a reminder, the patient presented initially with carline re renal colic for a distal ureteral stone. We passed a stent at that time. Then we brought her to the stone center, and along the x-rays with bilateral obliques, we did not see any definite stones in the ureter. We did ESWL for shockwave lithotripsy for the kidney stones. Today, she is here for stent removal and for ureteroscopy, and a possible laser lithotripsy with ston e basketing and stent removal. We have discussed risks, benefits, and alternatives. PLAN: Is as follows: 1. Antibiotic prophylaxis. 2. Cystoscopy, ureteroscopy, laser lithotripsy with stone basketing and stent removal, and then furt her plans will follow. The patient will be given antibiotic prophylaxis and analgesics. Ky Gómez MD cc: [id number] TT: 08/11/2016 10:29:08 jn
--- NOTE | 2016-08-11 11:18 | OP ---
PROCEDURE DATE: 08/08/2016 PREOPERATIVE DIAGNOSES: Urolithiasis, hematuria, hydronephrosis, severe flank pain. POSTOPERATIVE DIAGNOSES: Urolithiasis, hematuria, hydronephrosis, severe flank pain. PROCEDURE: Cystoscopy, removal of a left Double-J stent, left ureteroscopy, and left retrograde pyel ogram. COMPLICATIONS: There were none. OUR FINDINGS: No bladder lesions. There are no stones really within the entire ureter. There are 2 little teeny fragments up at the renal pelvis (pictures were taken, gross pictures). I did not feel comfortable to basket from that high up and lasering and worrying about causing more e troy and bleeding for these tiny little, little stones, was more concerning. Particularly, the patie nt preferred and asked to get rid of the stent. So we identified them. We see they are tiny, but we did not do anything else other than allow them t o pass. The patient has previously had a stent now in for a while. We provided the patient with Flomax and Toradol. See below addendum. Other than identifying these little tiny stones. INDICATIONS: The other thing that is important is the patient initially presented with severe renal colic. We put a stent in for a left distal ureteral stone. Subsequently, the patient did not think she passed her stone, but when we did a hunting guide film at the [facility], we did not see any stones there, so we did shockwave lithotripsy for the known kidney [facility]. We did an ESWL for the kidneys, not for the ureter and today as we were doing the procedure, we see no stones within the ureter between the bladder and the renal pelvis. An other than the above-mentioned stone, no other abnormalities appreciated. See the addendum at the end for further plans. PROCEDURE ITSELF: After obtaining informed consent, patient placed on the table. Routine monitoring devices placed, performed. Very difficult to see if there are any definite stones, even knowi ng what we know from before, we knew there were definite stones. Even when I am doing the procedure itself and I have the scope right on the stone where I am taking a picture of it and then we do a hunting guide film. It is very hard to see because they are just so tiny. I would say less than 1 mm of each stone fragment. Informed consent was obtained. Timeouts were called. Antibiotic prophylaxis provided. Cystoscope via the urethra. Identified the ureteral stent, removed it, put a wire up to the kidney w ithout difficulty. We went adjacent with the ureteroscope. And during the entire length of the ureter, I do not see any particular stones, fragments, etc. Now up at the renal pelvic region and we confirmed this with fluoroscopic imaging. We identified 2 little fragments. I would say they are less than 1 mm each. But at this point, the options are considered. Basketing that high up is a little bit concerning and lasering it causing more edema and bleeding also. Especially given their size and no other abnormalities. There is no stricture disease. No other abn ormalities appreciated. This should pass. So at this point, we removed . The patient tolerated the procedure well without complication. Ky Gómez MD cc: [id number] TT: 08/11/2016 11:17:32 en
--- NOTE | 2016-08-11 13:42 | RAD ---
PROCEDURE: Fluoroscopy up to 1 hour HISTORY: STENT REMOVAL / POSSIBLE LASER LITHOTRIPSY COMPARISON: TECHNIQUE: Fluoroscopy was provided in the operating room. 41 seconds of fluoroscopy time were used. Five images were submitted FINDINGS: Study shows a wide air in the left ureter and collecting system as well as a laser lithotripsy device IMPRESSION: As above
== END 2016-08-08 18:15 | disposition home or self-care (01) ==
LOC: SDS 12:59
PROVIDERS: ATTEND Urology
DX: N13.2 Hydronephrosis with renal and ureteral calculous obstruction (principal)
CPT/HCPCS: 52310; 76000; J0696; J1885; J2250; J2704; J2765; J3010; J7040; J7120; Q9966

== ENCOUNTER 2016-10-08 07:55 | Day surgery (SDC) | payer MEDICARE ==
[2016-10-08] MEDS ORDERED: Propofol 10 mg/ml Inj (20 ML) ONE (09:33)
[2016-10-08] MEDS ORDERED: Sodium Chloride 0.9% 1,000 ML IV SCH (10:00)
[2016-10-08 10:11] VITALS: RESP 16
[2016-10-08 11:19] VITALS: BP 138/68; TEMP 97.7
[2016-10-08 11:20] VITALS: PULSE 69; O2SAT 97
== END 2016-10-08 11:20 | disposition home or self-care (01) ==
LOC: ENDO 07:55
PROVIDERS: ATTEND Specialist
DX: K31.7 Polyp of stomach and duodenum (principal); K44.9 Diaphragmatic hernia without obstruction or gangrene; E03.9 Hypothyroidism, unspecified; I10 Essential (primary) hypertension; E78.5 Hyperlipidemia, unspecified
CPT/HCPCS: 43251; 88305; 88342; J2704; J7040 ×2